=== PATIENT | male | born 2000 | race African-American/Black ===

== ENCOUNTER 2022-01-09 10:12 | Emergency (ER) | payer BC ==
[2022-01-09 11:35] VITALS: PULSE 78; RESP 16
[2022-01-09 12:34] LABS: Basophils # (A) 0.1 k/uL (0-0.2); Basophils % (A) 2 %; Eosinophils # (A) 0.2 k/uL (0-0.7); Eosinophils % (A) 5 %; HCT 42.3 % (39.0-53.0); HGB 14.4 gm/dL (13.0-17.5); Lymphocytes # (A) 1.8 k/uL (1.0-4.8); Lymphocytes % (A) 51 %; MCH 29.4 pg (25.0-35.0); MCV 86.5 fL (80.0-100.0); Mean Platelet Volume 7.7; Monocytes # (A) 0.3 k/uL (0-1.0); Monocytes % (A) 8 %; Neutrophils # (A) 1.1 k/uL (1.3-7.7); Neutrophils % (A) 31 %; Platelet Count 252 k/uL (150-450); RBC 4.89 m/uL (4.30-5.90); RDW 12.1 % (11.5-15.5); WBC 3.5 k/uL (3.8-10.6)
[2022-01-09 12:50] LABS: ALT 16 U/L (4-49); AST 23 U/L (17-59); African American GFR (CKD) >90 (>60 ml/min/1.73 sqM); Albumin 4.5 g/dL (3.5-5.0); Alkaline Phosphatase 78 U/L (38-126); Anion Gap 15 mmol/L; Blood Urea Nitrogen 8 mg/dL (9-20); Calcium 9.6 mg/dL (8.4-10.2); Carbon Dioxide 24 mmol/L (22-30); Chloride 102 mmol/L (98-107); Glucose 102 mg/dL (74-99); Magnesium 1.8 mg/dL (1.6-2.3); Non-African American GFR(CKD) >90 (>60 ml/min/1.73 sqM); Potassium 3.7 mmol/L (3.5-5.1); Sodium 141 mmol/L (137-145); Total Bilirubin 1.3 mg/dL (0.2-1.3); Total Protein 7.3 g/dL (6.3-8.2)
--- NOTE | 2022-01-09 13:59 | ED ---
General Adult HPI - General Chief complaint: Neuro Symptoms/Deficit Stated complaint: left side facial tightness Time Seen by Provider: 01/09/22 11:42 Source: patient, RN notes reviewed Mode of arrival: ambulatory Limitations: no limitations - History of Present Illness Initial comments: This is a 21-year-old male who presents to the emergency department for left sided facial numbness. States that for the last month, he has had what feels like a tightness and numbness to the left side of his face. States that this started out with twitching of the eye before the numbness. Also reports intermittent episodes of muscle spasms in both of his legs. States that this happens multiple times each day and only lasts for a couple of seconds at a time. Denies any known triggers and this does not occur at any particular time of the day. He does not currently have a primary care provider but states that he is looking for one. Denies any weakness associated with these symptoms. Denies any fevers, chills, sore throat, cough, dyspnea, chest pain, palpitations, abdominal pain, nausea, vomiting, diarrhea, back pain, or headaches. MD Complaint: facial numbness Onset/Timin -: month(s) - Related Data Home Medications Medication Instructions Recorded Confirmed Amoxicillin 500 mg PO TID 01/09/22 01/09/22 Naproxen Sodium [Aleve] 440 mg PO BID PRN 01/09/22 01/09/22 Previous Rx's Medication Instructions Recorded Baclofen 5 mg PO Q8H PRN #20 tablet 01/09/22 predniSONE 50 mg PO Q24H 5 Days #5 tablet 01/09/22 Allergies Allergy/AdvReac Type Severity Reaction Status Date / Time peanut [Peanut Butter] AdvReac Anaphylaxis Verified 01/09/22 13:44 Review of Systems ROS Statement: Those systems with pertinent positive or pertinent negative responses have been documented in the HPI. ROS Other: All systems not noted in ROS Statement are negative. Past Medical History Past Medical History: No Reported History History of Any Multi-Drug Resistant Organisms: None Reported Past Surgical History: No Surgical Hx Reported Past Psychological History: No Psychological Hx Reported Smoking Status: Current every day smoker Past Drug Use History: Marijuana General Exam Limitations: no limitations General appearance: alert, in no apparent distress Head exam: Present: atraumatic, normocephalic, normal inspection ENT exam: Present: normal exam, mucous membranes moist, TM's normal bilaterally, normal external ear exam Neck exam: Present: normal inspection. Absent: tenderness, meningismus, lymphadenopathy Respiratory exam: Present: normal lung sounds bilaterally. Absent: respiratory distress, wheezes, rales, rhonchi, stridor Cardiovascular Exam: Present: regular rate, normal rhythm, normal heart sounds. Absent: systolic murmur, diastolic murmur, rubs, gallop, clicks Neurological exam: Present: alert, oriented X3, CN II-XII intact Expanded Speech: Present: fluid speech Cranial nerves: EOM's Intact: Normal, Facial Sensation: Normal Psychiatric exam: Present: normal affect, normal mood Skin exam: Present: warm, dry, intact, normal color. Absent: rash Course Vital Signs 01/09/22 01/09/22 11:32 14:32 Temperature 98 F 98.2 F Pulse Rate 78 78 Respiratory 16 16 Rate Blood Pressure 140/90 128/78 O2 Sat by Pulse 99 97 Oximetry Medical Decision Making - Medical Decision Making This is a 21-year-old male who presents to the emergency department for left sided facial numbness. He has no neurological deficits on examination. Case discussed with ED attending, Dr. Colin, who advised Baseline lab work. Lab work was obtained and found to be nonactionable. Discussed with the patient that the cause of the symptoms is not clear at this time. We will try a course of prednisone and a muscle relaxant. In the event he has some component of a residual Farrar's palsy, the prednisone may offer some relief, however I advised that we cannot be sure if this would have any effect on him or not. He was also given a prescription for a muscle relaxant. Advise to take this at night until he knows how it affects him, as it may be sedating. He is also instructed to avoid driving or operating machinery when taking this. He was given several local primary care providers to contact. He is instructed to become established with one of them for ongoing medical management and further evaluation of these ongoing symptoms. Return precautions reviewed in depth, the patient is instructed to return to the emergency department with any new, worsening, or concerning symptoms. Patient verbalized understanding. This case was discussed in detail with the attending ED physician. Presentation, findings, and treatment plan discussed in detail as well. - Lab Data Result diagrams: 01/09/22 12:25 01/09/22 12:25 Lab Results 01/09/22 01/09/22 Range/Units 12:25 12:25 WBC 3.5 L (3.8-10.6) k/uL RBC 4.89 (4.30-5.90) m/uL Hgb 14.4 (13.0-17.5) gm/dL Hct 42.3 (39.0-53.0) % MCV 86.5 (80.0-100.0) fL MCH 29.4 (25.0-35.0) pg MCHC 34.0 (31.0-37.0) g/dL RDW 12.1 (11.5-15.5) % Plt Count 252 (150-450) k/uL MPV 7.7 Neutrophils % 31 % Lymphocytes % 51 % Monocytes % 8 % Eosinophils % 5 % Basophils % 2 % Neutrophils # 1.1 L (1.3-7.7) k/uL Lymphocytes # 1.8 (1.0-4.8) k/uL Monocytes # 0.3 (0-1.0) k/uL Eosinophils # 0.2 (0-0.7) k/uL Basophils # 0.1 (0-0.2) k/uL Sodium 141 (137-145) mmol/L Potassium 3.7 (3.5-5.1) mmol/L Chloride 102 (98-107) mmol/L Carbon Dioxide 24 (22-30) mmol/L Anion Gap 15 mmol/L BUN 8 L (9-20) mg/dL Creatinine 0.62 L (0.66-1.25) mg/dL Est GFR (CKD-EPI)AfAm >90 (>60 ml/min/1.73 sqM) Est GFR (CKD-EPI)NonAf >90 (>60 ml/min/1.73 sqM) Glucose 102 H (74-99) mg/dL Calcium 9.6 (8.4-10.2) mg/dL Magnesium 1.8 (1.6-2.3) mg/dL Total Bilirubin 1.3 (0.2-1.3) mg/dL AST 23 (17-59) U/L ALT 16 (4-49) U/L Alkaline Phosphatase 78 (38-126) U/L Total Protein 7.3 (6.3-8.2) g/dL Albumin 4.5 (3.5-5.0) g/dL TSH 3.410 (0.465-4.680) mIU/L Disposition Clinical Impression: Muscle spasm Disposition: HOME SELF-CARE Instructions (If sedation given, give patient instructions): Muscle Spasm (ED) Additional Instructions: Return to the emergency department with any new, worsening, or concerning symptoms. Take the prednisone daily for 5 days. Take the baclofen as 1-2 tablets daily up to 3 times a day for muscle spasms. Take the first dose at night until you know how it affects you, as it may be sedating. Do not drive or operate machinery when taking this. Contact the primary care providers listed below and try to become established with one of them for ongoing care and further evaluation of symptoms. Prescriptions: Baclofen 5 mg PO Q8H PRN #20 tablet PRN Reason: Spasms predniSONE 50 mg PO Q24H 5 Days #5 tablet Is patient prescribed a controlled substance at d/c from ED?: No Referrals: None,Stated [Primary Care Provider] - 1-2 days Claudia Santizo MD [REFERRING] - 1-2 days Elvia Marmolejo MD [STAFF PHYSICIAN] - 1-2 days Agueda Perry NPC [STAFF PHYSICIAN] - 1-2 days Rae Landry DO [REFERRING] - 1-2 days Gaurang Amaya MD [STAFF PHYSICIAN] - 1-2 days Lauryn Bobby MD [STAFF PHYSICIAN] - 1-2 days
[2022-01-09 14:32] VITALS: BP 128/78; TEMP 98.2
== END 2022-01-09 14:32 | disposition home or self-care (01) ==
LOC: EC 10:12
DX: M62.838 Other muscle spasm (principal); F17.200 Nicotine dependence, unspecified, uncomplicated; F12.90 Cannabis use, unspecified, uncomplicated; Z91.010 Allergy to peanuts
CPT/HCPCS: 36415; 80053; 83735; 84443; 85025; 99284

== ENCOUNTER 2022-01-16 14:00 | Emergency (ER) | payer BC ==
--- NOTE | 2022-01-16 15:30 | ED ---
General Adult HPI - General Chief complaint: Recheck/Abnormal Lab/Rx Stated complaint: left leg weakness Time Seen by Provider: 01/16/22 14:45 Source: patient, RN notes reviewed, old records reviewed Mode of arrival: ambulatory Limitations: no limitations - History of Present Illness Initial comments: 21-year-old male presenting for reevaluation of left-sided facial numbness and left leg numbness. Patient's symptoms have been ongoing for several months. He does not currently have a primary care physician. He denies facial weakness or facial droop. Denies speech abnormalities. He does have some intermittent sharp stabbing headaches. None currently. He developed a left leg numbness over the past 24 hours. No weakness. No gait instability. He has no prior history of any chronic medical conditions. - Related Data Home Medications Medication Instructions Recorded Confirmed Amoxicillin 500 mg PO TID 01/09/22 01/09/22 Naproxen Sodium [Aleve] 440 mg PO BID PRN 01/09/22 01/09/22 Previous Rx's Medication Instructions Recorded Baclofen 5 mg PO Q8H PRN #20 tablet 01/09/22 predniSONE 50 mg PO Q24H 5 Days #5 tablet 01/09/22 Allergies Allergy/AdvReac Type Severity Reaction Status Date / Time peanut [Peanut Butter] AdvReac Anaphylaxis Verified 01/09/22 13:44 Review of Systems ROS Statement: Those systems with pertinent positive or pertinent negative responses have been documented in the HPI. ROS Other: All systems not noted in ROS Statement are negative. Past Medical History Past Medical History: No Reported History History of Any Multi-Drug Resistant Organisms: None Reported Past Surgical History: No Surgical Hx Reported Past Psychological History: No Psychological Hx Reported Smoking Status: Current every day smoker Past Drug Use History: Marijuana General Exam Limitations: no limitations General appearance: alert, in no apparent distress Head exam: Present: atraumatic, normocephalic Eye exam: Present: normal appearance, PERRL ENT exam: Present: normal exam Neck exam: Present: normal inspection. Absent: tenderness, meningismus Respiratory exam: Present: normal lung sounds bilaterally. Absent: respiratory distress, wheezes Cardiovascular Exam: Present: regular rate, normal rhythm GI/Abdominal exam: Present: soft. Absent: distended, tenderness, guarding Extremities exam: Present: normal inspection. Absent: normal capillary refill, pedal edema Back exam: Present: normal inspection Neurological exam: Present: alert, oriented X3, CN II-XII intact, other (Normal facial symmetry, clear speech, normal strength throughout, patient is able to feel in the left extremity subjective numbness.). Absent: motor sensory deficit Psychiatric exam: Present: normal affect, normal mood Skin exam: Present: warm, dry, intact. Absent: cyanosis, diaphoretic Course Vital Signs 01/16/22 14:19 Temperature 97.2 F L Pulse Rate 92 Respiratory 16 Rate Blood Pressure 150/102 O2 Sat by Pulse 98 Oximetry Medical Decision Making - Medical Decision Making 21-year-old male with left-sided numbness which is been present for the past several months. This includes left facial numbness and intermittent sharp headache. He also has had some left leg numbness. He is able to feel on exam. He has good strength. Negative Romberg, 5 out of 5 strength. Patient is mildly hypertensive as well. He does not have a primary care physician. He should follow both with primary care physician and given the duration of the symptoms should follow with her neurologist. He had previous laboratory testing performe d related to his facial numbness within the past several weeks. This was reviewed and was unremarkable. Return parameters discussed at length. Disposition Clinical Impression: Paresthesia Disposition: HOME SELF-CARE Condition: Fair Instructions (If sedation given, give patient instructions): Paresthesia (ED) Is patient prescribed a controlled substance at d/c from ED?: No Referrals: None,Stated [Primary Care Provider] - 1-2 days Anmol Raoms MD [STAFF PHYSICIAN] - 1-2 days Endy Barahona DO [STAFF PHYSICIAN] - 1-2 days Time of Disposition: 16:08
--- NOTE | 2022-01-16 15:57 | CT ---
EXAMINATION TYPE: CT brain wo con DATE OF EXAM: 01/16/2022 COMPARISON: None. HISTORY: left sided facial numbness, leg weakness CT DLP: 1151.4 mGycm. Automated Exposure Control for Dose Reduction was Utilized. TECHNIQUE: CT scan of the head is performed without contrast. FINDINGS: There is no acute intracranial hemorrhage, mass effect, or midline shift identified. The ventricles and sulci are within normal limits in size. Devi-white matter differentiation fairly well preserved. The globes are intact and the visualized sinuses are clear. IMPRESSION: No acute intracranial hemorrhage or midline shift is seen.
[2022-01-16 16:22] VITALS: BP 143/87; PULSE 91; RESP 18; TEMP 97.9
== END 2022-01-16 16:22 | disposition home or self-care (01) ==
LOC: EC 14:00
DX: R20.2 Paresthesia of skin (principal); F17.200 Nicotine dependence, unspecified, uncomplicated; F12.90 Cannabis use, unspecified, uncomplicated; Z91.010 Allergy to peanuts
CPT/HCPCS: 70450; 99284

== ENCOUNTER 2023-12-31 12:03 | Emergency (ER) | payer BC, OTHER ==
[2023-12-31 12:07] VITALS: RESP 18; TEMP 98
--- NOTE | 2023-12-31 13:16 | ED ---
General Adult HPI - General Chief complaint: Chest Pain Stated complaint: Chest pain Time Seen by Provider: 12/31/23 12:15 Source: patient, RN notes reviewed, old records reviewed Mode of arrival: ambulatory Limitations: no limitations - History of Present Illness Initial comments: This is a 23-year-old male presents to the emergency department complaining of chest pain. Patient states been ongoing for 3 weeks. Patient states he is mostly time on the left side but today it was also on the right side. Patient states when he sits still and does not move it does not hurt but when he moves or takes a deep breath it is there. Patient denies any fever chills or cough. Patient denies any direct trauma however he has a very labor-intensive job. Kenton quintanilla states movement or twisting causes the pain to occur as well as the deep breathing. Patient denies any back pain. Patient denies short of breath or difficulty breathing. - Related Data Previous Rx's Medication Instructions Recorded Ibuprofen [Motrin] 600 mg PO Q6HR PRN #20 tab 12/31/23 Allergies Allergy/AdvReac Type Severity Reaction Status Date / Time peanut [Peanut Butter] AdvReac Anaphylaxis Verified 12/31/23 14:09 Review of Systems ROS Statement: Those systems with pertinent positive or pertinent negative responses have been documented in the HPI. ROS Other: All systems not noted in ROS Statement are negative. Past Medical History Past Medical History: No Reported History History of Any Multi-Drug Resistant Organisms: None Reported Past Surgical History: No Surgical Hx Reported Past Psychological History: No Psychological Hx Reported Smoking Status: Current every day smoker Past Alcohol Use History: None Reported Past Drug Use History: Marijuana General Exam - General Exam Comments Initial Comments: GENERAL: Patient is well-developed and well-nourished. Patient is nontoxic and well- hydrated and is in no acute distress. ENT: Neck is soft and supple. No significant lymphadenopathy is noted. Oropharynx is clear. Moist mucous membranes. Neck has full range of motion without eliciting any pain. EYES: The sclera were anicteric and conjunctiva were pink and moist. Extraocular movements were intact and pupils were equal round and reactive to light. Eyelids were unremarkable. PULMONARY: Unlabored respirations. Good breath sounds bilaterally. CARDIOVASCULAR: There is a regular rate and rhythm without any murmurs gallops or rubs. Chest pain is reproducible with palpation or deep breathing ABDOMEN: Soft and nontender with normal bowel sounds. No palpable organomegaly was noted. There is no palpable pulsatile mass. SKIN: Skin is clear with no lesions or rashes and otherwise unremarkable. NEUROLOGIC: Patient is alert and oriented x3. Cranial nerves II through XII are grossly intact. Motor and sensory are also intact. Normal speech, volume and content. Symmetrical smile. MUSCULOSKELETAL: Normal extremities with adequate strength and full range of motion. No lower extremity swelling or edema. No calf tenderness. LYMPHATICS: No significant lymphadenopathy is noted PSYCHIATRIC: Normal psychiatric evaluation. Limitations: no limitations Course Vital Signs 12/31/23 12:05 Temperature 98 F Pulse Rate 100 Respiratory 18 Rate Blood Pressure 137/89 O2 Sat by Pulse 100 Oximetry Medical Decision Making - Medical Decision Making EKG interpreted by myself EKG shows sinus rhythm at 95 bpm FL interval 278 QRS is 94 QT interval 337 QTc is 390. Patient's EKG shows no ST segment elevation or depression Was pt. sent in by a medical professional or institution (, PA, PERMACULTURE DESIGNER, urgent ca re, hospital, or intermediate...) When possible be specific @ -No Did you speak to anyone other than the patient for history (EMS, parent, family, police, friend...)? What history was obtained from this source @ -No Did you review nursing and triage notes (agree or disagree)? Why? @ -I reviewed and agree with nursing and triage notes Were old charts reviewed (outside hosp., previous admission, EMS record, old EKG, old radiological studies, urgent care reports/EKG's, intermediate records)? Report findings @ -No old charts were reviewed Differential Diagnosis? @ -Differential Chest Pain: Stable Angina, Unstable Angina, STEMI, NSTEMI Aortic Dissection, Pneumothorax, Musculoskeletal, Esophageal Spasm GERD, Cholecystitis, Pancreatitis, Zoster, this is not meant to be an all-inclusive list. EKG interpreted by me (3pts min.). @ -As above X-rays interpreted by me (1pt min.). @ -Chest x-ray shows no acute abnormality CT interpreted by me (1pt min.). @ -None done U/S interpreted by me (1pt. min.). @ -None done What testing was considered but not performed or refused? (CT, X-rays, U/S, labs)? Why? @ -None What meds were considered but not given or refused? Why? @ -None Did you discuss the management of the patient with other professionals (professionals i.e. , PA, PERMACULTURE DESIGNER, lab, RT, psych nurse, social work lecturer, truck leasing manager, teacher, chief strategy officer, case planner)? Give summary @ -No Was smoking cessation discussed for >3mins.? @ -No Was critical care preformed (if so, how long)? @ -No Were there social determinants of health that impacted care today? How? (Homelessness, low income, unemployed, alcoholism, drug addiction, transportation, low edu. Level, literacy, decrease access to med. care, half-way, rehab)? @ -No Was there de-escalation of care discussed even if they declined (Discuss DNR or withdrawal of care, Hospice)? DNR status @ -No What co-morbidities impacted this encounter? (DM, HTN, Smoking, COPD, CAD, Cancer, CVA, ARF, Chemo, Hep., AIDS, mental health diagnosis, sleep apnea, morbid obesity)? @ -None Was patient admitted / discharged? Hospital course, mention meds given and route, prescriptions, significant lab abnormalities, going to OR and other pertinent info. @ -Patient was given Toradol and reduced his pain. Patient also could reproduce the pain with movement or deep breathing. Patient denies any shortness of breath or difficulty breathing at this time. Patient states as long as he sits and does not take any deep deep breaths or twisting he is having no pain Undiagnosed new problem with uncertain prognosis? @ -No Drug Therapy requiring intensive monitoring for toxicity (Heparin, Nitro, Insulin, Cardizem)? @ -No Were any procedures done? @ -No Diagnosis/symptom? @ -Musculoskeletal chest pain Acute, or Chronic, or Acute on Chronic? @ -Acute Uncomplicated (without systemic symptoms) or Complicated (systemic symptoms)? @ -Uncomplicated Side effects of treatment? @ -No Exacerbation, Progression, or Severe Exacerbation? @ -No Poses a threat to life or bodily function? How? (Chest pain, [place], [place], pneumonia, PE, COPD, DKA, ARF, appy, cholecystitis, CVA, Diverticulitis, Homicidal, Suicidal, threat to staff... and all critical care pts) @ -No Disposition Clinical Impression: Musculoskeletal chest pain Disposition: HOME SELF-CARE Condition: Good Instructions (If sedation given, give patient instructions): Chest Pain (ED) Prescriptions: Ibuprofen [Motrin] 600 mg PO Q6HR PRN #20 tab PRN Reason: For pain Is patient prescribed a controlled substance at d/c from ED?: No Referrals: None,Stated [Primary Care Provider] - 1-2 days Time of Disposition: 14:33
--- NOTE | 2023-12-31 13:37 | XR ---
EXAMINATION TYPE: XR chest 2V DATE OF EXAM: 12/31/2023 1:33 PM COMPARISON: None TECHNIQUE: XR chest 2V Frontal and lateral views of the chest. CLINICAL INDICATION:Male, 23 years old with history of Difficulty breathing ; FINDINGS: Lungs/Pleura: There is no evidence of pleural effusion, focal consolidation, or pneumothorax. Pulmonary vascularity: Unremarkable. Heart/mediastinum: Cardiomediastinal silhouette is unremarkable. Musculoskeletal: No acute osseous pathology. IMPRESSION: No acute cardiopulmonary disease/process. [facility], , 12/31/2023 1:35 PM
[2023-12-31] MEDS: KETOROLAC 15 MG/ML 1 ML VIAL IVP STA (13:38)
[2023-12-31 14:53] VITALS: BP 122/81; PULSE 66
== END 2023-12-31 14:50 | disposition home or self-care (01) ==
LOC: EC 12:03
CPT/HCPCS: 71046; 96374; 99285